=== PATIENT | male | born 1940 | race Caucasian/White ===

== ENCOUNTER 2020-06-07 10:17 | Outpatient (CLI) | payer MEDICARE, SELFPAY ==
[2020-06-07 10:37] LABS: Basophils Absolute Auto 0.1 K/mm3 (0.0-0.1); Basophils Percent Auto 0.6 % (0.2-1.2); Eosinophils Absolute Auto 0.2 K/mm3 (0-0.3); Eosinophils Percent Auto 2.1 % (0-4.4); Hemoglobin 13.6 g/dL (14.0-18.0); Immature Granulocyte Absolute 0.04 K/mm3 (0.00-0.031); Immature Granulocyte Percent A 0.4 % (0-0.5); Lymphocytes Absolute Auto 2.19 K/mm3 (0.9-3.2); Lymphocytes Percent Auto 22.5 % (18.3-44.2); Mean Corpuscular HGB Conc 33.2 g/dl (32-36); Mean Corpuscular Volume 93.4 fl (80-100); Mean Platelet Volume 9.5 fl (7.4-10.4); Monocytes Percent Auto 10.7 % (2.6-8.5); Neutrophils Absolute Auto 6.2 K/mm3 (1.3-6.7); Neutrophils Percent Auto 63.7 % (45.5-73.1); Platelet Count Result 175 k/mm3 (150-375); Red Blood Count 4.39 M/mm3 (4.6-6.20); Red Cell Distribution Width 12.5 % (11.5-14.5); White Blood Count 9.8 K/mm3 (4.5-10.0)
[2020-06-07 10:49] LABS: Alanine Aminotransferase 23 U/L (4-50); Albumin Level 4.2 g/dL (3.5-5.1); Alkaline Phosphatase 72 U/L (38-126); Anion Gap 5 mmol/L (8-16); Aspartate Amino Transferase 31 U/L (17-59); Bilirubin,Total 0.7 mg/dL (0.2-1.3); Blood Urea Nitrogen 20 mg/dL (9-20); Calcium 9.5 mg/dL (8.4-10.2); Carbon Dioxide 30 mmol/L (22-30); Chloride 105 mmol/L (98-107); Estimated Glomerular Filt Rate > 60; Glucose 109 mg/dL (75-110); Potassium 4.2 mmol/L (3.4-5.0); Sodium 140 mmol/L (137-145)
[2020-06-07 11:00] LABS: Prothrombin Time 13.3 Seconds (11.1-14.7)
== END 2020-06-07 10:18 | disposition home or self-care (01) ==
LOC: ANHLAB 10:21
PROVIDERS: Visit Provider Internal Medicine Cardiovascular Disease
DX: I35.0 Nonrheumatic aortic (valve) stenosis (principal); Z01.810 Encounter for preprocedural cardiovascular examination
CPT/HCPCS: 36415; 80053; 85025; 85610

== ENCOUNTER 2020-07-18 06:52 | Outpatient (NON) | payer MEDICARE, SELFPAY ==
[2020-07-18 19:59] LABS: SARS-CoV-2 RNA PCR Negative
== END 2020-07-18 06:53 ==
PROVIDERS: PCP Family Medicine; Visit Provider Internal Medicine Cardiovascular Disease
DX: Z20.828 Contact with and (suspected) exposure to other viral communicable diseases (principal); Z01.812 Encounter for preprocedural laboratory examination
CPT/HCPCS: 87635; C9803; U0003

== ENCOUNTER 2020-07-18 08:16 | Outpatient (CLI) | payer MEDICARE, SELFPAY ==
[2020-07-18 09:04] LABS: Basophils Absolute Auto 0.1 K/mm3 (0.0-0.1); Basophils Percent Auto 0.7 % (0.2-1.2); Eosinophils Absolute Auto 0.2 K/mm3 (0-0.3); Hematocrit 38.1 % (42.0-52.0); Hemoglobin 12.8 g/dL (14.0-18.0); Immature Granulocyte Absolute 0.02 K/mm3 (0.00-0.031); Immature Granulocyte Percent A 0.3 % (0-0.5); Lymphocytes Absolute Auto 2.07 K/mm3 (0.9-3.2); Lymphocytes Percent Auto 28.6 % (18.3-44.2); Mean Corpuscular HGB Conc 33.6 g/dl (32-36); Mean Corpuscular Hemoglobin 31.4 pg (26-34); Mean Corpuscular Volume 93.6 fl (80-100); Mean Platelet Volume 9.2 fl (7.4-10.4); Monocytes Absolute Auto 0.9 K/mm3 (0.1-0.6); Monocytes Percent Auto 11.8 % (2.6-8.5); Neutrophils Percent Auto 55.6 % (45.5-73.1); Platelet Count Result 168 k/mm3 (150-375); Red Blood Count 4.07 M/mm3 (4.6-6.20); Red Cell Distribution Width 12.8 % (11.5-14.5); White Blood Count 7.2 K/mm3 (4.5-10.0)
[2020-07-18 09:14] LABS: Partial Thromboplastin Time 28.5 SECONDS (22.3-36.8)
[2020-07-18 09:16] LABS: Alanine Aminotransferase 20 U/L (4-50); Albumin Level 4.2 g/dL (3.5-5.1); Alkaline Phosphatase 72 U/L (38-126); Anion Gap 6 mmol/L (8-16); Aspartate Amino Transferase 29 U/L (17-59); Bilirubin,Total 0.4 mg/dL (0.2-1.3); Blood Urea Nitrogen 15 mg/dL (9-20); Carbon Dioxide 32 mmol/L (22-30); Chloride 105 mmol/L (98-107); Estimated Glomerular Filt Rate > 60; Glucose 111 mg/dL (75-110); Potassium 4.4 mmol/L (3.4-5.0); Sodium 143 mmol/L (137-145)
[2020-07-18 09:25] LABS: NT Pro B Type Natriuretic Pept 269 PG/ML (5-100)
== END 2020-07-18 08:17 | disposition home or self-care (01) ==
PROVIDERS: PCP Family Medicine; Visit Provider Internal Medicine Cardiovascular Disease
DX: I35.0 Nonrheumatic aortic (valve) stenosis (principal); E11.65 Type 2 diabetes mellitus with hyperglycemia; R06.02 Shortness of breath
CPT/HCPCS: 36415; 80053; 83880; 85025; 85610; 85730; 87635; C9803; U0003

== ENCOUNTER 2020-08-04 14:59 | Outpatient (CLI) | payer MEDICARE, SELFPAY ==
--- NOTE | ~2020-08-04 | US_ITS ---
EXAMINATION: US soft tissue groin RT EXAM DATE: 08/04/2020 15:32 INDICATION: Swelling, lump right inguinal region. Catheterization 10 days ago. TECHNIQUE: Multiple grayscale and Doppler images of the right inguinal canal, common femoral artery w ere obtained (by a technologist who performed the scan) and subsequently reviewed. There is no prior study for comparison. FINDINGS: Normal high resistance triphasic waveform within the right common femoral artery. There is no pseudoa neurysm or hematoma. IMPRESSION: 1. Unremarkable right common femoral artery, inguinal region. Reviewed, dictated and finalized at location A. DEALER
== END 2020-08-04 15:00 | disposition home or self-care (01) ==
PROVIDERS: PCP Family Medicine; Visit Provider Nurse Practitioner Adult Health
DX: R22.41 Localized swelling, mass and lump, right lower limb (principal); M79.89 Other specified soft tissue disorders; S30.1XXA Contusion of abdominal wall, initial encounter; X58.XXXA Exposure to other specified factors, initial encounter; T81.718A Complication of other artery following a procedure, not elsewhere classified, initial encounter
CPT/HCPCS: 76882

== ENCOUNTER 2020-10-06 11:18 | Outpatient (CLI) | payer MEDICARE, SELFPAY ==
--- NOTE | ~2020-10-06 | US_ITS ---
EXAMINATION: US retroperitoneal comp DATE: 10/06/2020 12:09 INDICATION: Hematuria TECHNIQUE: Multiple ultrasound grayscale images of the kidneys were obtained. COMPARISON: None. FINDINGS: The right kidney measures 11.1 x 5.3 x 4.7 cm. The left kidney measures 12.4 x 5.2 x 5.3 cm. The kidn eys demonstrate normal echogenicity. 1.4 cm anechoic cyst at the mid right kidney. 2.0 cm anechoic ex ophytic cyst at the mid left kidney. There is no hydronephrosis in either kidney. No stones identifi ed. The bladder is normal but is partially decompressed which limits evaluation. IMPRESSION: 1. A couple bilateral renal cysts. Otherwise normal kidneys without hydronephrosis. Reviewed, dictated and finalized at location A. TING NURSE IMPRESSION: 1. A couple bilateral renal cysts. Otherwise normal kidneys without hydronephr osis.
== END 2020-10-06 11:19 | disposition home or self-care (01) ==
PROVIDERS: PCP Family Medicine; Visit Provider Urology
DX: R31.0 Gross hematuria (principal); N28.1 Cyst of kidney, acquired
CPT/HCPCS: 76770

== ENCOUNTER 2020-12-25 19:08 | Emergency (ER) | payer MEDICARE, SELFPAY ==
--- NOTE | ~2020-12-25 | CT_ITS ---
EXAMINATION: CT brain wo con INDICATION: Head injury COMPARISON: None TECHNIQUE: Standard unenhanced head CT. The dose-length product (DLP) was 605.33 mGy-cm. The mA was a djusted according to patient size. Iterative reconstruction technique was employed. FINDINGS: There is no acute intraparenchymal hemorrhage. No evidence of mass lesion. No evidence of a cute infarction. There is mild periventricular and subcortical hypodensity probably related to small vessel ischemic disease. There is mild prominence of the sulci and ventricles related to cerebral atr ophy. Intracranial calcified cerebral atherosclerosis is noted. There are no extra-axial collections. There is no mass effect or midline shift. Changes in the globes are likely from ocular lens surgery. The visualized sinuses and mastoid air cells are well aerated. IMPRESSION: 1. No acute intracranial abnormality. 2. Age related findings. Reviewed, dictated and finalized at location A.
[2020-12-25 19:19] VITALS: BP 165/76; PULSE 71; RESP 20; TEMP 36.4; O2SAT 100
--- NOTE | 2020-12-25 19:33 | PC.NURSE ---
pt here c daughter in law. she reports pt fell asleep in computer chair and fell out, hitting head. pt has lac to forehead, with gauze 4x4 [address] on arrival in room with bleeding controlled. pt reported he was able to get up but family reports his son picked him up. pt has bruise to right abd that appears old and not new today. pt denies pain at present. to CT scan.
--- NOTE | 2020-12-25 19:34 | ED.HEATRA ---
HPI - Head Injury General Chief complaint: Head Injury Stated complaint: FELL HEAD INJ Time Seen by Provider: 12/25/20 19:27 Source: patient Mode of arrival: ambulatory Limitations: no limitations History of Present Illness HPI Narrative: Patient is an 80-year-old male complaining of a cut on top of his head after he fall asleep on his chair and fell forward. Patient denies any head pain or headache. Patient denies any loss of consciousness after the fall. Patient was able to get up and ambulate after the fall. Patient was asymptomatic prior to the fall. Patient denies any neck pain, chest pain, back pain, Jonah pain, pelvic pain or any extremity pain/injury. Related Data Home Medications Medication Instructions Recorded Confirmed albuterol sulfate 90 mcg/actuation 2 inhalation INHALATION Q4-6H PRN 04/14/20 aerosol inhaler gm aspirin 81 mg tablet,delayed 81 mg PO DAILY 04/14/20 release budesonide-formoterol HFA 160 2 puff INHALATION BID gm 04/14/20 mcg-4.5 mcg/actuation aerosol inhaler flunisolide 25 mcg (0.025 %) nasal 2 spray NASAL ONCE ml 04/14/20 spray latanoprost 0.005 % eye drops 1 drop EACH EYE DAILY 04/14/20 montelukast 10 mg tablet 10 mg PO DAILY 04/14/20 omega-3 fatty acids 1,000 mg 1,000 mg PO DAILY 04/14/20 capsule pramipexole 0.5 mg tablet 0.5 mg PO DAILY tablet 04/14/20 tiotropium bromide 1.25 2 puff INHALATION DAILY 04/14/20 mcg/actuation mist for inhalation flunisolide 25 mcg (0.025 %) nasal 1 spray NASAL ONCE ml 04/26/20 spray linaclotide 72 mcg capsule 72 mcg PO DAILY 04/26/20 losartan 100 mg tablet 100 mg PO DAILY 04/26/20 melatonin 3 mg capsule PO 04/26/20 metoprolol tartrate 25 mg tablet 50 mg PO DAILY tablet 04/26/20 omeprazole 20 mg capsule,delayed 40 mg PO BID cap 04/26/20 release simvastatin 20 mg tablet 20 mg PO DAILY 04/26/20 trazodone 100 mg tablet 50 mg PO DAILY tablet 04/26/20 Allergies Allergy/AdvReac Type Severity Reaction Status Date / Time No Known Allergies Allergy Verified 12/25/20 19:24 Review of Systems Review of Systems: All systems reviewed & are unremarkable except as noted in HPI and below Constitutional: Constitutional: Denies body ache(s), Denies chills, Denies excessive sweating, Denies fatigue, Denies fever(s), Denies headache(s), Denies lethargy, Denies malaise, Denies weakness and Denies weight loss Eyes: Eyes: Denies blurry vision, Denies change in vision and Denies loss of vision ENT: Denies dizziness, Denies ear discharge, Denies headache(s), Denies lip swelling, Denies epistaxis, Denies nasal congestion, Denies neck pain, Denies throat swelling and Denies tongue swelling Cardiovascular: Cardiovascular: Denies chest pain, Denies chest pain at rest, Denies chest pain with activity, Denies diaphoresis, Denies rapid heart rate, Denies edema, Denies irregular heart rhythm, Denies lightheadedness, Denies palpitations, Denies dyspnea and Denies dyspnea on exertion Respiratory: Respiratory: Denies chest congestion, Denies cough, Denies hemoptysis, Denies dyspnea and Denies dyspnea on exertion Gastrointestinal: Gastrointestinal: Denies abdominal pain, Denies melena, Denies hematochezia, Denies diarrhea, Denies nausea, Denies vomiting and Denies hematemesis Musculoskeletal: Musculoskeletal: Denies abnormal gait, Denies deformity, Denies joint swelling, Denies limited range of motion, Denies neck pain and Denies numbness Neurologic: Denies Abnormal speech present, Denies abnormal gait, Denies confusion, Denies dizziness, Denies headache(s), Denies focal weakness, Denies loss of vision, Denies numbness, Denies Other visual disturbances, Denies Sensory deficit (Neuro) and Denies weakness Psychiatric: Psychiatric: Denies confusion, Denies depression, Denies auditory hallucinations, Denies homicidal ideation and Denies suicidal ideation Endocrine: Endocrine: Denies cold intolerance, Denies excessive sweating, Denies fatigue, Denies he
[2020-12-25 19:53] VITALS: BP 160/81; PULSE 81; RESP 17; O2SAT 100
== END 2020-12-25 21:15 | disposition home or self-care (01) ==
PROVIDERS: Emergency Provider Emergency Medicine; PCP Family Medicine
DX: S01.01XA Laceration without foreign body of scalp, initial encounter (principal); Z79.82 Long term (current) use of aspirin; M19.90 Unspecified osteoarthritis, unspecified site; J45.909 Unspecified asthma, uncomplicated; Z85.46 Personal history of malignant neoplasm of prostate; E11.9 Type 2 diabetes mellitus without complications; K21.9 Gastro-esophageal reflux disease without esophagitis; H40.9 Unspecified glaucoma; E78.5 Hyperlipidemia, unspecified; I10 Essential (primary) hypertension; G25.81 Restless legs syndrome; Z90.79 Acquired absence of other genital organ(s); Z96.641 Presence of right artificial hip joint; Z87.891 Personal history of nicotine dependence; W07.XXXA Fall from chair, initial encounter
CPT/HCPCS: 12002; 70450; 99284

== ENCOUNTER 2021-03-06 15:32 | Outpatient (CLI) | payer MEDICARE, SELFPAY ==
--- NOTE | ~2021-03-06 | MR_ITS ---
EXAMINATION: MR brain/brain stem wo con DATE: 03/06/2021 16:21 INDICATION: Gait disorder. TECHNIQUE: Magnetic resonance imaging (MRI) of the brain and brainstem was performed without intraven ous contrast. Sequences included sagittal and axial T1-weighted FSE, axial diffusion-weighted FS EPI, axial T2*-weighted GRE, axial T2-weighted FLAIR Propeller, and axial T2-weighted Propeller. Apparent diffusion coefficient (ADC) maps were created. COMPARISON: Head CT 12/25/2020 FINDINGS: There are scattered areas of nonspecific increased T2-weighted signal intensity in the cere bral white matter and corey. There is no intracranial hemorrhage, acute infarction, or abnormal intrac ranial mass lesion. The ventricles are normal in size. There is mild mucosal thickening in left maxil femi sinus. There are likely changes of ocular lens replacement surgeries. The mastoid air cells are normal. IMPRESSION: 1. Mild nonspecific cerebral white matter disease and pontine disease, which likely represents chroni c small vessel ischemic disease. Reviewed, dictated and finalized at location A. IMPRESSION: 1. Mild nonspecific cerebral white matter disease and pontine disease, which garrett rasheed represents chronic small vessel ischemic disease.
== END 2021-03-06 15:33 | disposition home or self-care (01) ==
LOC: ANHIMG 15:34
PROVIDERS: PCP Family Medicine; Visit Provider Nurse Practitioner Gerontology
DX: R26.9 Unspecified abnormalities of gait and mobility (principal); R93.0 Abnormal findings on diagnostic imaging of skull and head, not elsewhere classified
CPT/HCPCS: 70551

== ENCOUNTER 2021-04-05 10:37 | Outpatient (CLI) | payer MEDICARE, SELFPAY ==
--- NOTE | ~2021-04-05 | MR_ITS ---
EXAMINATION: MRA brain wo con EXAM DATE: 04/05/2021 11:29 INDICATION: Gait disorder, abnormal MR. TECHNIQUE: 3-D [id number] MRA of the intracranial arteries was performed without contrast. There is no prior study for comparison. FINDINGS: There is normal flow related signal seen within the vertebral, basilar and internal carotid arteries. There is no proximal stenosis. There are no aneurysms identified. Both A1 and P1 segments are pat ent. Flow in the cerebral arteries is symmetric. There is right-sided posterior communicating arter y dominant posterior cerebral artery. IMPRESSION: Normal MRA brain exam. Reviewed, dictated and finalized at location A. IMPRESSION: Normal MRA brain exam.
== END 2021-04-05 10:38 | disposition home or self-care (01) ==
PROVIDERS: PCP Family Medicine; Visit Provider Nurse Practitioner Gerontology
DX: R26.9 Unspecified abnormalities of gait and mobility (principal); R93.89 Abnormal findings on diagnostic imaging of other specified body structures; R90.89 Other abnormal findings on diagnostic imaging of central nervous system; R42 Dizziness and giddiness
CPT/HCPCS: 70544

== ENCOUNTER 2021-08-18 15:16 | Emergency (ER) | payer MEDICARE, SELFPAY ==
[2021-08-18] VITALS (7 sets, daily range): BP systolic 144–157; BP diastolic 72–82; PULSE 96–114; RESP 19–22; TEMP 36.7; O2SAT 95–97
--- NOTE | ~2021-08-18 | CT_ITS ---
EXAMINATION: CT brain wo osiel EXAM DATE: 08/18/2021 16:27 INDICATION: head injury, seizure. TECHNIQUE: Spiral CT of the head was performed without contrast. Axial, coronal and sagittal images were reviewed. The dose-length product (DLP) for this examination was 681.00 mGy-cm. The exposure w as tailored according to patient size, and iterative reconstruction (ASIR) was used as additional dos e reduction technique. Comparison is made to prior examination from no prior. FINDINGS: Study is limited due to patient motion. There is no acute intraparenchymal hemorrhage. No evidence of intraparenchymal brain mass lesion. No evidence of acute infarction. Please note that i nitial head CT has limited sensitivity for small or acute infarctions. There is periventricular and s ubcortical hypodensity, nonspecific but probably related to small vessel ischemic disease. There is prominence of the sulci and ventricles related to cerebral atrophy. There is intracranial carotid arteriosclerosis. There are no extra-axial collections. There is no mass effect or midline shift. Patient has had bilateral ocular lens surgery. There is frontal scalp contusion, swelling. The visua lized sinuses and mastoid air cells are well aerated. IMPRESSION: 1. Some limitations but no acute intracranial findings suspected. 2. Chronic age related findings. Reviewed, dictated and finalized at location B. FIC POLICE OFFICER
--- NOTE | ~2021-08-18 | CT_ITS ---
EXAMINATION: CT facial & cervical spine wo EXAM DATE: 08/18/2021 16:28 INDICATION: head injury, neck pain, nasal injury . TECHNIQUE: Spiral CT of the facial bones was acquired in the axial plane. Coronal reformatted images were also reviewed. Spiral CT of the cervical spine was performed without contrast. Axial images we re reviewed. Coronal and sagittal reformatted images were also reviewed. The dose-length product (DL P) for this examination was 324.54 mGy-cm. The exposure was tailored according to patient size, and iterative reconstruction (ASIR) was used as additional dose reduction technique. There is no prior s tudy for comparison. FINDINGS: Study is limited due to patient motion. FACIAL CT: Acute mildly depressed nasal bone fractures suspected based on head CT images which had l ess motion at this location. Sinuses appear well aerated, no evidence of orbital or sinus fracture. M andible intact. The orbits, globes and extraocular muscles are unremarkable. The visualized sinuses and mastoid air cells are well aerated. Frontal scalp swelling. CERVICAL CT: There is acute odontoid base fracture with 6 mm posterior displacement. Unstable type in jury, recommend neurosurgical consult. Patient is in c-collar. I discussed this finding with Peace Hess PA-C who phoned immediately after the scan was performed. No other acute cervical fractures. 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 Advanced cervical spondylosis. IMPRESSION: 1. Acute odontoid base fracture with posterior displacement; the patient in c-collar and obtained ne urosurgical consult. 2. Mildly depressed nasal bone fractures. 3. Frontal scalp swelling. Reviewed, dictated and finalized at location B. SOR CONSULTANT IMPRESSION: 1. Acute odontoid base fracture with posterior displacement; the patient in c- collar and obtained neurosurgical consult. 2. Mildly depressed nasal bone fractures. 3. Frontal scalp swelling.
--- NOTE | ~2021-08-18 | XR_ITS ---
XR chest 1V portable 08/18/2021 17:26 Indication: Hypertension. Trauma. Possible seizure. Procedure: AP portable chest Comparison: Comparison to multiple prior studies sequentially, with oldest reviewed study dated 07/17. Findings: Heart size is normal. There is atherosclerosis and ectasia of the aorta. There is a vascula r stent overlying the heart. There is mild interstitial edema. No pleural effusion or pneumothorax. Impression: 1: Mild interstitial edema. Reviewed, dictated and finalized at location A. OG DESIGN ENGINEER Impression: 1: Mild interstitial edema.
--- NOTE | 2021-08-18 15:30 | ED.HEATRA ---
HPI - Head Injury General Chief complaint: Head Injury <Peace Hess PA-C - Last Filed: 08/18/21 20:16> Stated complaint: fall, combative, <Peace Hess PA-C - Last Filed: 08/18/21 20:16> Time Seen by Provider: 08/18/21 15:17 <Peace Hess PA-C - Last Filed: 08/18/21 20:16> Source: family and EMS <ROSALIND Cifuentes Last Filed: 08/18/21 20:16> Mode of arrival: EMS <Peace Hess PA-C - Last Filed: 08/18/21 20:16> Limitations: altered mental status <Peace Hess PA-C - Last Filed: 08/18/21 20:16> History of Present Illness HPI Narrative: This is an 81-year-old male that presents to the emergency department after a fall today with head injury. Per patient's she heard a loud bang in the next room. Her was on the floor and having full body shaking movements. He was unresponsive. This lasted for a couple of minutes. Patient's called 911. reports he is not on any blood thinners. No history of previous seizures. Patient was combative with EMS. EMS does report an episode of vomiting. Patient has laceration to the nose. Patient does report neck pain. <Peace Hess PA-C - Last Filed: 08/18/21 20:16> Related Data Home medications: Home Medications Medication Instructions Recorded Confirmed albuterol sulfate 90 mcg/actuation 2 inhalation INHALATION Q4-6H PRN 04/14/20 aerosol inhaler gm aspirin 81 mg tablet,delayed 81 mg PO DAILY 04/14/20 release budesonide-formoterol HFA 160 2 puff INHALATION BID gm 04/14/20 mcg-4.5 mcg/actuation aerosol inhaler flunisolide 25 mcg (0.025 %) nasal 2 spray NASAL ONCE ml 04/14/20 spray latanoprost 0.005 % eye drops 1 drop EACH EYE DAILY 04/14/20 montelukast 10 mg tablet 10 mg PO DAILY 04/14/20 omega-3 fatty acids 1,000 mg 1,000 mg PO DAILY 04/14/20 capsule pramipexole 0.5 mg tablet 0.5 mg PO DAILY tablet 04/14/20 tiotropium bromide 1.25 2 puff INHALATION DAILY 04/14/20 mcg/actuation mist for inhalation flunisolide 25 mcg (0.025 %) nasal 1 spray NASAL ONCE ml 04/26/20 spray linaclotide 72 mcg capsule 72 mcg PO DAILY 04/26/20 losartan 100 mg tablet 100 mg PO DAILY 04/26/20 melatonin 3 mg capsule PO 04/26/20 metoprolol tartrate 25 mg tablet 50 mg PO DAILY tablet 04/26/20 omeprazole 20 mg capsule,delayed 40 mg PO BID cap 04/26/20 release simvastatin 20 mg tablet 20 mg PO DAILY 04/26/20 trazodone 100 mg tablet 50 mg PO DAILY tablet 04/26/20 <Peace Hess PA-C - Last Filed: 08/18/21 20:16> Allergies/Adverse reactions: Allergies Allergy/AdvReac Type Severity Reaction Status Date / Time No Known Allergies Allergy Verified 08/18/21 15:33 <Peace Hess PA-C - Last Filed: 08/18/21 20:16> Review of Systems Review of Systems: ROS unobtainable: Yes unobtainable due to medical condition <ROSALIND Cifuentes Last Filed: 08/18/21 20:16> [facility] Past Medical History Medical History: Medical History Arthritis Asthma Cancer of prostate Chronic GERD Cough Diabetes Gastroesophageal reflux disease Glaucoma Hyperlipemia Hypertension Insomnia Restless leg Rhinitis <Peace Hess PA-C - Last Filed: 08/18/21 20:16> Surgical History Surgical History: Surgical History H/O prostatectomy History of right hip replacement Hx of adenoidectomy Hx of radical prostatectomy Hx of tonsillectomy <Peace Hess PA-C - Last Filed: 08/18/21 20:16> Family History Family History: Family History Mother Family history of kidney disease, Onset Age: 64 Patient's mother is Father Patient's father is Carcinoma of colon Sibling Family history of arthritis Other Hypertension <Peace Hess PA-C - Last Filed: 08/18/21 20:16>
[2021-08-18] MEDS: LORazepam INJ (*CRX) 2 MG/ML VIAL 1 MG IV PUSH ×2 (15:40→16:06)
--- NOTE | 2021-08-18 15:47 | PC.NURSE ---
Pt was at home with , had unwitnessed fall while was in the other room. found patient face-down on the floor, shaking, concern for seizure-like activity x few minutes, long enough for to leave the room, call EMS, and return to patient. No known hx of seizures. Apparently recent dementia diagnosis? Is supposed to see a neurologist. Pt does not drink alcohol. Arrives confused, irritable. MAEW, +sensation to all extremities. Complaining of neck pain. Wounds to forehead and bridge of nose. Pupils equal 2-3 bilaterally. Speech clear. Pt very restless, requiring assistance to stay in bed.
[2021-08-18 15:52] LABS: Basophils Absolute Auto 0.1 K/mm3 (0.0-0.1); Basophils Percent Auto 0.5 % (0.2-1.2); Eosinophils Absolute Auto 0.2 K/mm3 (0-0.3); Eosinophils Percent Auto 1.6 % (0-4.4); Hematocrit 37.2 % (42.0-52.0); Hemoglobin 12.6 g/dL (14.0-18.0); Immature Granulocyte Absolute 0.05 K/mm3 (0.00-0.031); Immature Granulocyte Percent A 0.5 % (0-0.5); Lymphocytes Absolute Auto 3.14 K/mm3 (0.9-3.2); Lymphocytes Percent Auto 29.7 % (18.3-44.2); Mean Corpuscular HGB Conc 33.9 g/dl (32-36); Mean Corpuscular Hemoglobin 30.6 pg (26-34); Mean Corpuscular Volume 90.3 fl (80-100); Mean Platelet Volume 10.1 fl (7.4-10.4); Neutrophils Absolute Auto 6.2 K/mm3 (1.3-6.7); Neutrophils Percent Auto 58.7 % (45.5-73.1); Platelet Count Result 196 k/mm3 (150-375); Red Blood Count 4.12 M/mm3 (4.6-6.20); Red Cell Distribution Width 13.2 % (11.5-14.5); White Blood Count 10.6 K/mm3 (4.5-10.0)
[2021-08-18 16:04] LABS: Alanine Aminotransferase 26 U/L (4-50); Albumin Level 4.5 g/dL (3.5-5.1); Alkaline Phosphatase 79 U/L (38-126); Anion Gap 12 mmol/L (8-16); Aspartate Amino Transferase 40 U/L (17-59); Bilirubin,Total 0.8 mg/dL (0.2-1.3); Blood Urea Nitrogen 16 mg/dL (9-20); Calcium 9.2 mg/dL (8.4-10.2); Carbon Dioxide 22 mmol/L (22-30); Chloride 103 mmol/L (98-107); Estimated CRCL calculation 61 ml/min; Estimated Glomerular Filt Rate > 60; Glucose 139 mg/dL (65-110); Potassium 3.8 mmol/L (3.4-5.0); Sodium 137 mmol/L (137-145)
[2021-08-18 16:08] LABS: Partial Thromboplastin Time 26.9 SECONDS (22.3-36.8); Prothrombin Time 13.3 Seconds (11.1-14.7)
--- NOTE | 2021-08-18 16:57 | PC.NURSE ---
per CUAUHTEMOC griffith and sir have been called to transfer pt to [facility] eta 11 minutes
[2021-08-18] MEDS: TETANUS,DIPHTHERIA,AC PERTUSSIS ADULT (0.5 ML) BOOSTRIX IM (17:14)
[2021-08-18] MEDS: ceFAZolin SODIUM 1 GM VIAL IM (17:15)
--- NOTE | 2021-08-18 17:20 | PC.NURSE ---
eliz has arrived and is aware that pt is going to [facility]
== END 2021-08-18 17:45 | disposition short-term general hospital (02) ==
PROVIDERS: Physician Assistant; Emergency Provider General Practice; PCP Family Medicine
DX: S12.111A Posterior displaced Type II dens fracture, initial encounter for closed fracture (principal); S02.2XXA Fracture of nasal bones, initial encounter for closed fracture; S01.81XA Laceration without foreign body of other part of head, initial encounter; S09.90XA Unspecified injury of head, initial encounter; M19.90 Unspecified osteoarthritis, unspecified site; E11.9 Type 2 diabetes mellitus without complications; I10 Essential (primary) hypertension; E78.5 Hyperlipidemia, unspecified; Z23 Encounter for immunization; W19.XXXA Unspecified fall, initial encounter; K21.9 Gastro-esophageal reflux disease without esophagitis; G47.00 Insomnia, unspecified; G25.81 Restless legs syndrome; Z79.899 Other long term (current) drug therapy; Z79.82 Long term (current) use of aspirin; Z87.09 Personal history of other diseases of the respiratory system; Z85.46 Personal history of malignant neoplasm of prostate; Z96.641 Presence of right artificial hip joint; Z90.89 Acquired absence of other organs
CPT/HCPCS: 12011; 36415; 70450; 70486; 71045; 72125; 80053; 85025; 85610; 85730; 90471; 90715; 96372; 96374; 99285; J0690; J2060; J3360